=== PATIENT | male | born 1975 | race Caucasian/White ===

== ENCOUNTER 2020-03-16 12:38 | Inpatient (IN) | payer OTHER ==
--- NOTE | 2020-03-16 12:54 | BHS.RME ---
Substance Use & Tx History - Substance Use History Heroin Substance amount: 12 bags Frequency of use: Daily Substance route: Injection (ex: intravenous or skin popping) Date of Last Use: 03/16/20 (6 aqm) Cocaine- Powder Frequency of use: Daily Substance route: Injection (ex: intravenous or skin popping) Date of Last Use: 03/16/20 Synthetic Cannabinoid Substance amount: k2 Frequency of use: Daily Substance route: Smoking Date of Last Use: 03/16/20 Nicotine Substance amount: 1 pack Frequency of use: Daily Substance route: Smoking Physical/Psych/Mental Status - Behavior General Behavior: Increased activity (restlessness, agitation) Eye Contact: Normal - Cooperativeness Cooperativeness: Cooperative - Thinking Thought Processes: Tight, Logical, Goal Directed - Physical Health Problems Is patient presently having any pain?: No Does patient presently have any injuries (include location): No Does patient currently have a fever: No Is patient : No COWS - Scale Resting Pulse: 0= [place] 80 or Below Sweatin= No chills or Flushing Restless Observation: 1= Difficult to Sit Still Pupil Size: 0= Normal to Room Light Bone or Joint Aches: 1= Mild Discomfort Runny Nose/ Eye Tearin= None GI Upset > 30mins: 1= Stomach Cramp Tremor Observation: 1= Tremor [place], Not Seen Yawning Observation: 1= 1-2x During Session Anxiety or Irritability: 1=Feels Anxious/Irritable Goose Flesh Skin: 0=Smooth Skin (due to having used earlier today. not yet in withdrawals) COWS Score: 6
--- NOTE | 2020-03-16 14:21 | HP ---
COWS - Scale Resting Pulse: 0= [place] 80 or Below Sweatin= No chills or Flushing Restless Observation: 1= Difficult to Sit Still Pupil Size: 0= Normal to Room Light Bone or Joint Aches: 1= Mild Discomfort Runny Nose/ Eye Tearin= None GI Upset > 30mins: 1= Stomach Cramp Tremor Observation: 1= Tremor [place], Not Seen Yawning Observation: 1= 1-2x During Session Anxiety or Irritability: 1=Feels Anxious/Irritable Goose Flesh Skin: 0=Smooth Skin (due to having used earlier today. not yet in withdrawals) COWS Score: 6 CIWA Score - Admission Criteria OASAS Guidelines: Admission for Medically Managed Detox: Requires at least one of the followin. CIWA greater than 12 2. Seizures within the past 24 hours 3. Delirium tremens within the past 24 hours 4. Hallucinations within the past 24 hours 5. Acute intervention needed for co occurring medical disorder 6. Acute intervention needed for co occurring psychiatric disorder 7. Severe withdrawal that cannot be handled at a lower level of care (continued vomiting, continued diarrhea, abnormal vital signs) requiring intravenous medication and/or fluids 8. Admitting History and Physical - Admission Chief Complaint: Mr. Luis presents to [facility] [place] requesting admission to detox for heroin use disorder. History of Present Illness: Mr. Luis is a 44 yo gentleman who presents to [facility] [place] requesting a detox admission for heroin, cocaine and K 2 use disorder. He was in the hospital 3 days ago with a skin infection, he states he was treated with IV antibiotics and discharged. PMH: HIV non compliant, HCV tx PSH: kidney stones right and left/lithotripsy Psych: none SOC: homeless, no care home, on streets Legal: on parole: burglary Substance Use History Heroin Substance amount: 12 bags Frequency of use: Daily Substance route: Injection (ex: intravenous or skin popping) Date of Last Use: 03/16/20 (6 aqm) First use age 15y Overdose:no Narcan:yes Methadone: last rx 5-6 years ago, prior to recent incarceration, released from alf in October Cocaine- Powder Frequency of use: Daily Substance route: Injection (ex: intravenous or skin popping) Date of Last Use: 03/16/20 First: age 15 Synthetic Cannabinoid Substance amount: k2 Frequency of use: Daily Substance route: Smoking Date of Last Use: 03/16/20 First use age 43 y Nicotine Substance amount: 1 pack Frequency of use: Daily Substance route: Smoking Alcohol 3 pints Rum 3 x per week, first use age 20y, last use 7pm last night. No seizures. No blackouts. 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 History Source: Patient Limitations to Obtaining History: Language Barrier, Other (interpretor used) - Past Medical History Hepatobiliary: Yes: Hepatitis C Infectious Disease: Yes: HIV - Smoking History Smoking history: Current every day smoker Have you smoked in the past 12 months: Yes Aproximately how many cigarettes per day: 20 - Alcohol/Substance Use Hx Alcohol Use: No Admission ROS BHS - HPI Allergies/Adverse Reactions: Allergies Allergy/AdvReac Type Severity Reaction Status Date / Time aspirin Allergy Intermediate Rash Verified 05/06/16 10:12 ibuprofen [From Motrin] Allergy Intermediate Rash Verified 05/06/16 10:12 Exam Limitations: No Limitations - Ebola screening Have you traveled outside of the country in the last 21 days: No Have you been sick,other than usual withdrawal symptoms: No Do you have a fever: No - Review of Systems Constitutional: Unintentional Wgt. Loss (30 lb weight loss since Oct 2019) EENT: reports: Blurred Vision (glasses, does not have with him) Respiratory: reports: No Symptoms reported Cardiac: reports: No Symptoms Reported GI: reports: Nausea : reports: No Symptoms Reported Musculoskeletal: reports: No Symptoms Reported Integumentary: reports: Other (left arm injection site swelling) Neuro: reports: No Symptoms reported Endocrine: reports: No Symptoms Reported Hematology: reports: No Symptoms Reported Patient History - Patient Medical History Hx Anemia: No Hx Asthma: No Hx Chronic Obstructive Pulmonary Disease (COPD): No Hx Cancer: No Hx Cardiac Disorders: No Hx Congestive Heart Failure: No Hx Hypertension: No Hx Hypercholesterolemia: No Hx Pacemaker: No HX Cerebrovascular Accident: No Hx Seizures: No Hx Dementia: No Hx Diabetes: Yes Hx Gastrointestinal Disorders: No Hx Liver Disease: Yes Hx Genitourinary Disorders: No Hx Sexually Transmitted Disorders: No Hx Renal Disease (ESRD): No Hx Human Immunodeficiency Virus (HIV): Yes (AIDS,CD4+ 56) Hx Hepatitis C: Yes (NEEDS [place].) Hx Depression: No Hx Suicide Attempt: No Hx Bipolar Disorder: No Hx Schizophrenia: No - Patient Surgical History Past Surgical History: No Hx Neurologic Surgery: No Hx Cataract Extraction: No Hx Cardiac Surgery: No Hx Lung Surgery: No Hx Breast Surgery: No Hx Breast Biopsy: No Hx Abdominal Surgery: No Hx Appendectomy: No Hx Cholecystectomy: No Hx Genitourinary Surgery: No Hx Section: No Hx Orthopedic Surgery: No Anesthesia Reaction: No - PPD History Date: 05/08/16 - Smoking Cessation Smoking history: Current every day smoker Have you smoked in the past 12 months: Yes Aproximately how many cigarettes per day: 20 Hx Chewing Tobacco Use: No Initiated information on smoking cessation: Yes 'Breaking Loose' booklet given: 03/16/20 Admission Physical Exam [facility] - Physical General Appearance: Yes: Within Normal Limits, No Apparent Distress, Nourished, Appropriately Dressed HEENTM: Yes: EOMI, Hearing grossly Normal, Normocephalic, Normal Voice Respiratory: Yes: Lungs Clear, Normal Breath Sounds, No Accessory Muscle Use Neck: Yes: Within Normal Limits, Supple, Other (injection sites clean) Breast: Yes: Breast Exam Deferred Cardiology: Yes: Regular Rhythm, Regular Rate, S1, S2 Abdominal: Yes: Normal Bowel Sounds, Non Tender, Flat, Soft Genitourinary: Yes: Other (deferred) Back: Yes: Normal Inspection Musculoskeletal: Yes: full range of Motion, Gait Steady Extremities: Yes: Normal Inspection, Non-Tender Neurological: Yes: Alert, Normal Response Integumentary: Yes: Track Damico (multiple bilateral forearm track damico. Left lateral wrist swelling ~ 3" with open ulceration at center/slit like 0.5", erythematous) - Diagnostic (1) Alcohol use disorder Current Visit: Yes Status: Chronic (2) Synthetic cannabinoid abuse Current Visit: Yes Status: Acute (3) HIV (human immunodeficiency virus infection) Current Visit: No Status: Chronic (4) HCV (hepatitis C virus) Current Visit: No Status: Chronic Comment: treated (5) Bilateral nephrolithiasis Current Visit: Yes Status: Acute (6) Homeless Current Visit: Yes Status: Acute (7) Cellulitis Current Visit: Yes Status: Acute (8) Cocaine dependence, uncomplicated Current Visit: Yes Status: Acute (9) Nicotine dependence Current Visit: No Status: Acute (10) Opioid dependence with withdrawal Current Visit: Yes Status: Acute Cleared for Admission [facility] - Detox or Rehab [facility] Level of Care: Medically Managed Detox Regimen/Protocol: Methadone Breathalyzer - Breathalyzer Breathalyzer: 0 Urine Drug Screen - Test Device Lot number: [id number] Expiration date: 05/18/21 - Control Is test valid?: Yes - Results Drug screen NEGATIVE: No Urine drug screen results: JEANMARIE-Cocaine, FEN-Fentanyl, MOP-Opiates, MTD-Methadone Inpatient Rehab Admission - Rehab Decision to Admit Inpatient rehab admission?: No
[2020-03-16] MEDS ORDERED: METHADONE HCL 10 MG TABLET (FOR DETOX USE ONLY) PO ONE (14:41)
[2020-03-16] MEDS ORDERED: MAGNESIUM CITRATE 300 ML BOTTLE PO PRN (14:41)
[2020-03-16] MEDS ORDERED: METHOCARBAMOL 500 MG TABLET PO PRN (14:41)
[2020-03-16] MEDS ORDERED: cloNIDine HCL 0.1 MG TABLET PO PRN (14:41)
[2020-03-16] MEDS ORDERED: ACETAMINOPHEN 325 MG TABLET (FP) PO PRN ×2 (14:41)
[2020-03-16] MEDS ORDERED: ONDANSETRON *ODT* 4 MG TABLET SL PRN (14:41)
[2020-03-16] MEDS ORDERED: NICOTINE POLACRILEX 2 MG GUM BUC PRN (14:41)
[2020-03-16] MEDS ORDERED: IBUPROFEN 400 MG TABLET (FP) PO PRN (14:41)
[2020-03-16] MEDS ORDERED: MENTHOL/PHENOL 1 EACH UD MM PRN (14:41)
[2020-03-16] MEDS ORDERED: MAGNESIUM HYDROX 2400MG/30ML ORAL SUSPENSION 30 ML CUP PO PRN (14:41)
[2020-03-16] MEDS ORDERED: MAG HYDROX/AL HYDROX/SIMETH 30 ML UNIT-DOSE CUP PO PRN (14:41)
[2020-03-16] MEDS ORDERED: BISMUTH SUBSALICYLATE 524 MG/30 ML UD PO PRN (14:41)
[2020-03-16 14:52] VITALS: BMI 25.4
--- NOTE | 2020-03-16 15:29 | EKG ---
Test Reason : Blood Pressure : / mmHG Vent. Rate : 062 BPM Atrial Rate : 062 BPM P-R Int : 142 ms QRS Dur : 100 ms QT Int : 432 ms P-R-T Axes : 031 036 020 degrees QTc Int : 438 ms NORMAL SINUS RHYTHM MINIMAL VOLTAGE CRITERIA FOR LVH, MAY BE NORMAL VARIANT BORDERLINE ECG NO PREVIOUS ECGS AVAILABLE Confirmed by LINA DOAN MD ([id number]) on 03/16/2020 3:28:43 PM Referred By: Confirmed By:LINA DOAN MD
[2020-03-16] MEDS: NICOTINE 21 MG/24 HOURS TOPICAL PATCH TD SCH (15:31)
[2020-03-16] MEDS: PRENATAL VITAMINS W/ FOLIC ACID TABLET (FP) PO SCH (15:31)
[2020-03-16] MEDS: hydrOXYzine PAMOATE 25 MG CAPSULE (FP) PO SCH ×2 (17:45→22:19)
[2020-03-16] MEDS ORDERED: MELATONIN 5 MG TABLETS PO SCH (22:00)
[2020-03-16] MEDS: THIAMINE HCL 100 MG TABLET (FP) PO SCH (22:19)
[2020-03-17] MEDS: hydrOXYzine PAMOATE 25 MG CAPSULE (FP) PO SCH (05:48)
[2020-03-17] MEDS ORDERED: hydrOXYzine PAMOATE 25 MG CAPSULE (FP) PO PRN (08:25)
[2020-03-17] MEDS ORDERED: METHADONE HCL 5 MG TABLET (FOR DETOX USE ONLY) ONE (08:26)
[2020-03-17] MEDS ORDERED: METHADONE HCL 10 MG TABLET (FOR DETOX USE ONLY) ONE (08:26)
[2020-03-17] MEDS ORDERED: MELATONIN 5 MG TABLETS PO PRN (09:20)
[2020-03-17] MEDS ORDERED: diazePAM 5 MG TABLET PO PRN (09:23)
[2020-03-17] MEDS ORDERED: METHADONE (DETOX) 20 MG, METHADONE (DETOX) 5 MG PO ONE (10:00)
[2020-03-17] MEDS ORDERED: SULFAMETHOXAZOLE/TRIMETHOPRIM 800MG/160MG D.S. TABLET PO SCH (10:00)
[2020-03-17] MEDS: NICOTINE 21 MG/24 HOURS TOPICAL PATCH TD SCH (10:08)
[2020-03-17] MEDS: PRENATAL VITAMINS W/ FOLIC ACID TABLET (FP) PO SCH (10:09)
--- NOTE | 2020-03-17 10:28 | PN ---
BHS COWS - Scale Resting Pulse: 0= [place] 80 or Below Sweatin= Chills/Flushing Restless Observation: 1= Difficult to Sit Still Pupil Size: 0= Normal to Room Light Bone or Joint Aches: 2= Severe Diffuse Aches Runny Nose/ Eye Tearin= None GI Upset > 30mins: 0= None Tremor Observation of Outstretched Hands: 2= Slight Tremor Visible Yawning Observation: 1= 1-2x During Session Anxiety or Irritability: 2=Irritable/Anxious Goose Flesh Skin: 0=Smooth Skin COWS Score: 9 BHS Progress Note (SOAP) Subjective: sweats chills body aches interrupted sleep agitation irritable infection on arm Objective: 03/17/20 10:29 Vital Signs Temperature 98.7 F 03/17/20 08:27 Pulse Rate 64 03/17/20 08:27 Respiratory Rate 18 03/17/20 08:27 Blood Pressure 128/87 03/17/20 08:27 O2 Sat by Pulse Oximetry (%) 99 03/16/20 21:17 labs pending aaoxx3 ambulating no acute distress Assessment: 03/17/20 10:30 withdrawals noted skin wound with some serous sanguineous fluid and some redness to surrounding tissue note. warm to touch. pt does not exhibit any pain but only discomfort. Plan: continue detox increase fluids order to cleanse wound with N/S then apply bacitracin ointment Bactrim ds bid x 7 days ordered.
[2020-03-17] MEDS: THIAMINE HCL 100 MG TABLET (FP) PO SCH (22:28)
[2020-03-17] MEDS: SULFAMETHOXAZOLE/TRIMETHOPRIM 800MG/160MG D.S. TABLET PO SCH (22:28)
[2020-03-18] MEDS ORDERED: METHADONE HCL 10 MG TABLET (FOR DETOX USE ONLY) PO ONE (10:00)
[2020-03-18] MEDS: SULFAMETHOXAZOLE/TRIMETHOPRIM 800MG/160MG D.S. TABLET PO SCH ×2 (10:15→23:00)
[2020-03-18] MEDS: NICOTINE 21 MG/24 HOURS TOPICAL PATCH TD SCH (10:16)
[2020-03-18] MEDS: PRENATAL VITAMINS W/ FOLIC ACID TABLET (FP) PO SCH (10:16)
--- NOTE | 2020-03-18 10:23 | PN ---
BHS COWS - Scale Resting Pulse: 0= [place] 80 or Below Sweatin= Chills/Flushing Restless Observation: 1= Difficult to Sit Still Pupil Size: 0= Normal to Room Light Bone or Joint Aches: 2= Severe Diffuse Aches Runny Nose/ Eye Tearin= Nasal Congestion GI Upset > 30mins: 2= Nausea/Diarrhea Tremor Observation of Outstretched Hands: 1= Tremor [place], Not Seen Yawning Observation: 0= None Anxiety or Irritability: 1=Feels Anxious/Irritable Goose Flesh Skin: 3=Piloerection COWS Score: 12 BHS Progress Note (SOAP) Subjective: chills goosebumps sweats body aches nausea Objective: 03/18/20 10:20 Vital Signs Temperature 97.3 F L 03/18/20 08:47 Pulse Rate 60 03/18/20 08:47 Respiratory Rate 16 03/18/20 08:47 Blood Pressure 128/67 03/18/20 08:47 O2 Sat by Pulse Oximetry (%) 97 03/18/20 05:49 pt is a very hard stick and stone belt sander has been unsuccessful with blood drawn. pt encouraged to drink plenty of water for hydration. labs ordered and stone belt sander will try again this afternoon. Assessment: 03/18/20 10:22 withdrawals Plan: continue detox zofran nick prn pending blood draws
--- NOTE | 2020-03-18 11:02 | CONSULT ---
[facility] Psychiatric Consult - Data Date of interview: 03/18/20 Admission source: [place] Identifying data: Mr Luis is a 44 years old chinese spreaking male seeking detox treatment for opioid cocaine and synthetic cannabis Substance Abuse History: Reports history of heroin, cocaine and k2 use. Refer to addiction counselor's summary for further information Medical History: Significant for HIV+, , history of treatment for hepatitis C and lithotripsy for kidney stones. Smokes cigarettes 1 ppd Psychiatric History: Patient was approached at bedside. Told news writer in chinese:" I don't need psychiatrist"
[2020-03-18] MEDS: THIAMINE HCL 100 MG TABLET (FP) PO SCH (23:00)
[2020-03-19] MEDS ORDERED: METHADONE HCL 5 MG TABLET (FOR DETOX USE ONLY) ONE (08:55)
[2020-03-19] MEDS ORDERED: METHADONE HCL 10 MG TABLET (FOR DETOX USE ONLY) ONE (08:56)
[2020-03-19] MEDS ORDERED: METHADONE (DETOX) 10 MG, METHADONE (DETOX) 5 MG PO ONE (10:00)
[2020-03-19] MEDS: SULFAMETHOXAZOLE/TRIMETHOPRIM 800MG/160MG D.S. TABLET PO SCH ×2 (10:02→21:52)
[2020-03-19] MEDS: NICOTINE 21 MG/24 HOURS TOPICAL PATCH TD SCH (10:02)
[2020-03-19] MEDS: PRENATAL VITAMINS W/ FOLIC ACID TABLET (FP) PO SCH (10:03)
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
[2020-03-19 10:33] LABS: BASO % 0.2 % (0-2.0); EOS % 3.2 % (0-4.5); HEMATOCRIT 40.6 % (35.4-49); LYMPH % 27.7 % (8-40); MCH 28.5 pg (25.7-33.7); MEAN CELL VOLUME 89.2 fl (80-96); MEAN PLT VOLUME 9.7 fl (7.5-11.1); MONO % 9.7 % (3.8-10.2); NEUT % 59.2 % (42.8-82.8); PLATELET COUNT 156 K/MM3 (134-434); RBC 4.55 M/mm3 (4.00-5.60); RDW 14.8 % (11.9-15.9); WHITE BLOOD COUNT 5.1 K/mm3 (4.0-10.0)
[2020-03-19 10:43] LABS: ALBUMIN 3.3 g/dl (3.4-5.0); BILIRUBIN,TOTAL 1.1 mg/dL (0.2-1); BLOOD UREA NITROGEN 5.3 mg/dL (7-18); CALCIUM 9.1 mg/dL (8.5-10.1); CREATININE 0.8 mg/dL (0.55-1.3); POTASSIUM 3.5 mmol/L (3.5-5.1)
--- NOTE | 2020-03-19 10:47 | PN ---
BHS COWS - Scale Resting Pulse: 0= [place] 80 or Below Sweatin= Chills/Flushing Restless Observation: 1= Difficult to Sit Still Pupil Size: 0= Normal to Room Light Bone or Joint Aches: 1= Mild Discomfort Runny Nose/ Eye Tearin= None GI Upset > 30mins: 1= Stomach Cramp Tremor Observation of Outstretched Hands: 1= Tremor [place], Not Seen Yawning Observation: 0= None Anxiety or Irritability: 1=Feels Anxious/Irritable Goose Flesh Skin: 0=Smooth Skin COWS Score: 6 BHS Progress Note (SOAP) Subjective: chills poor appetite sweats Objective: 03/19/20 10:49 Vital Signs Temperature 97.1 F L 03/19/20 08:33 Pulse Rate 67 03/19/20 08:33 Respiratory Rate 17 03/19/20 08:33 Blood Pressure 113/64 03/19/20 08:33 O2 Sat by Pulse Oximetry (%) 96 03/19/20 05:55 Laboratory Tests 03/16/20 03/19/20 11:30 08:30 Sodium 140 Potassium 3.5 Chloride 102 Carbon Dioxide 31 Anion Gap 6 L BUN 5.3 L Creatinine 0.8 Est GFR (CKD-EPI)AfAm 125.92 Est GFR (CKD-EPI)NonAf 108.65 Random Glucose 92 Calcium 9.1 Total Bilirubin 1.1 H AST 48 H ALT 30 Alkaline Phosphatase 104 Total Protein 8.0 Albumin 3.3 L COVID-19 (CHENG) Not detected current labs noted rest of labs pending aaox3 ambulating no acute distress Assessment: 03/19/20 10:50 withdrawals Plan: continue detox ensure plus BID for lunch and dinner increase fluids pending labs
[2020-03-19] MEDS ORDERED: MELATONIN 5 MG TABLETS PO PRN (10:49)
--- NOTE | 2020-03-19 12:56 | PN ---
S Progress Note Note: pt has a long history of depression, HIV, alcohol and heroin dependence where he is at risk for relapse if he is to be d/c on Monday instead of Monday. pt will benefit of this stay to prevent a loss of continuity of care and treatment for his dependence.
[2020-03-19] MEDS: THIAMINE HCL 100 MG TABLET (FP) PO SCH (21:51)
[2020-03-20] MEDS ORDERED: METHADONE HCL 10 MG TABLET (FOR DETOX USE ONLY) PO ONE (10:00)
[2020-03-20] MEDS: NICOTINE 21 MG/24 HOURS TOPICAL PATCH TD SCH (10:04)
[2020-03-20] MEDS: SULFAMETHOXAZOLE/TRIMETHOPRIM 800MG/160MG D.S. TABLET PO SCH ×2 (10:04→21:44)
[2020-03-20] MEDS: PRENATAL VITAMINS W/ FOLIC ACID TABLET (FP) PO SCH (10:04)
--- NOTE | 2020-03-20 12:11 | PN ---
BHS COWS - Scale Resting Pulse: 0= [place] 80 or Below Sweatin= No chills or Flushing Restless Observation: 0= Sits Still Pupil Size: 1= Pupils >than Normal Bone or Joint Aches: 1= Mild Discomfort Runny Nose/ Eye Tearin= Nasal Congestion GI Upset > 30mins: 1= Stomach Cramp Tremor Observation of Outstretched Hands: 2= Slight Tremor Visible Yawning Observation: 1= 1-2x During Session Anxiety or Irritability: 2=Irritable/Anxious Goose Flesh Skin: 0=Smooth Skin COWS Score: 9 BHS Progress Note (SOAP) Subjective: alert,irritable,anxious,interrupted sleep,pain in the body and back, Objective: 03/20/20 12:09 Vital Signs Temperature 97.3 F L 03/20/20 08:28 Pulse Rate 62 03/20/20 08:28 Respiratory Rate 16 03/20/20 08:28 Blood Pressure 109/61 03/20/20 08:28 O2 Sat by Pulse Oximetry (%) 96 03/20/20 06:19 03/20/20 12:10 Laboratory Last Values WBC 5.1 K/mm3 (4.0-10.0) 03/19/20 08:30 RBC 4.55 M/mm3 (4.00-5.60) 03/19/20 08:30 Hgb 13.0 GM/dL (11.7-16.9) 03/19/20 08:30 Hct 40.6 % (35.4-49) 03/19/20 08:30 MCV 89.2 fl (80-96) 03/19/20 08:30 MCH 28.5 pg (25.7-33.7) 03/19/20 08:30 MCHC 32.0 g/dl (32.0-35.9) 03/19/20 08:30 RDW 14.8 % (11.9-15.9) 03/19/20 08:30 Plt Count 156 K/MM3 (134-434) D 03/19/20 08:30 MPV 9.7 fl (7.5-11.1) D 03/19/20 08:30 Absolute Neuts (auto) 3.0 K/mm3 (1.5-8.0) 03/19/20 08:30 Neutrophils % 59.2 % (42.8-82.8) 03/19/20 08:30 Lymphocytes % 27.7 % (8-40) 03/19/20 08:30 Monocytes % 9.7 % (3.8-10.2) 03/19/20 08:30 Eosinophils % 3.2 % (0-4.5) 03/19/20 08:30 Basophils % 0.2 % (0-2.0) 03/19/20 08:30 Nucleated RBC % 0 % (0-0) 03/19/20 08:30 Sodium 140 mmol/L (136-145) 03/19/20 08:30 Potassium 3.5 mmol/L (3.5-5.1) 03/19/20 08:30 Chloride 102 mmol/L (98-107) 03/19/20 08:30 Carbon Dioxide 31 mmol/L (21-32) 03/19/20 08:30 Anion Gap 6 MMOL/L (8-16) L 03/19/20 08:30 BUN 5.3 mg/dL (7-18) L 03/19/20 08:30 Creatinine 0.8 mg/dL (0.55-1.3) 03/19/20 08:30 Est GFR (CKD-EPI)AfAm 125.92 03/19/20 08:30 Est GFR (CKD-EPI)NonAf 108.65 03/19/20 08:30 Random Glucose 92 mg/dL (74-106) 03/19/20 08:30 Calcium 9.1 mg/dL (8.5-10.1) 03/19/20 08:30 Total Bilirubin 1.1 mg/dL (0.2-1) H 03/19/20 08:30 AST 48 U/L (15-37) H 03/19/20 08:30 ALT 30 U/L (13-61) 03/19/20 08:30 Alkaline Phosphatase 104 U/L (45-117) 03/19/20 08:30 Total Protein 8.0 g/dl (6.4-8.2) 03/19/20 08:30 Albumin 3.3 g/dl (3.4-5.0) L 03/19/20 08:30 Syphilis Serology Non-reactive (NONREACTIVE) 03/19/20 08:30 COVID-19 (CHENG) Not detected (Not Detected) 03/16/20 11:30 Assessment: withdrawal symptom Plan: continue detox methadone regimen
[2020-03-20] MEDS: THIAMINE HCL 100 MG TABLET (FP) PO SCH (21:44)
[2020-03-21] MEDS ORDERED: METHADONE HCL 5 MG TABLET (FOR DETOX USE ONLY) PO ONE (06:00)
[2020-03-21] MEDS: SULFAMETHOXAZOLE/TRIMETHOPRIM 800MG/160MG D.S. TABLET PO SCH (10:11)
[2020-03-21] MEDS: PRENATAL VITAMINS W/ FOLIC ACID TABLET (FP) PO SCH (10:11)
[2020-03-21] MEDS: NICOTINE 21 MG/24 HOURS TOPICAL PATCH TD SCH (10:12)
[2020-03-21 13:26] VITALS: PULSE 67; TEMP 97.3
--- NOTE | 2020-03-21 14:41 | PN ---
BHS COWS - Scale Resting Pulse: 0= [place] 80 or Below Sweatin= No chills or Flushing Restless Observation: 1= Difficult to Sit Still Pupil Size: 0= Normal to Room Light Bone or Joint Aches: 1= Mild Discomfort Runny Nose/ Eye Tearin= None GI Upset > 30mins: 0= None Tremor Observation of Outstretched Hands: 0= None Yawning Observation: 1= 1-2x During Session Anxiety or Irritability: 1=Feels Anxious/Irritable Goose Flesh Skin: 0=Smooth Skin COWS Score: 4 BHS Progress Note (SOAP) Subjective: Anxious (mild), restless. Objective: Patient A & O X 3, Observed Ambulating on Detox Unit Unassisted. In No Acute Distress. 03/21/20 14:45 Vital Signs Temperature 97.3 F L 03/21/20 12:19 Pulse Rate 67 03/21/20 12:19 Respiratory Rate 16 03/21/20 12:19 Blood Pressure 127/67 03/21/20 12:19 O2 Sat by Pulse Oximetry (%) 100 03/21/20 12:19 Laboratory Tests 03/16/20 03/19/20 03/19/20 11:30 08:30 08:30 WBC 5.1 RBC 4.55 Hgb 13.0 Hct 40.6 MCV 89.2 MCH 28.5 MCHC 32.0 RDW 14.8 Plt Count 156 D MPV 9.7 D Absolute Neuts (auto) 3.0 Neutrophils % 59.2 Lymphocytes % 27.7 Monocytes % 9.7 Eosinophils % 3.2 Basophils % 0.2 Nucleated RBC % 0 Sodium 140 Potassium 3.5 Chloride 102 Carbon Dioxide 31 Anion Gap 6 L BUN 5.3 L Creatinine 0.8 Est GFR (CKD-EPI)AfAm 125.92 Est GFR (CKD-EPI)NonAf 108.65 Random Glucose 92 Calcium 9.1 Total Bilirubin 1.1 H AST 48 H ALT 30 Alkaline Phosphatase 104 Total Protein 8.0 Albumin 3.3 L Syphilis Serology COVID-19 (CHENG) Not detected 03/19/20 08:30 WBC RBC Hgb Hct MCV MCH MCHC RDW Plt Count MPV Absolute Neuts (auto) Neutrophils % Lymphocytes % Monocytes % Eosinophils % Basophils % Nucleated RBC % Sodium Potassium Chloride Carbon Dioxide Anion Gap BUN Creatinine Est GFR (CKD-EPI)AfAm Est GFR (CKD-EPI)NonAf Random Glucose Calcium Total Bilirubin AST ALT Alkaline Phosphatase Total Protein Albumin Syphilis Serology Non-reactive COVID-19 (CHENG) Lab Results noted. Assessment: 03/21/20 14:46 WITHDRAWAL SYMPTOMS. Plan: Due to presence of pre-existing medical and psychiatric conditions and due concern about high risk of relapse, Patient to be held on Detox Unit until tomorrow, 03/22/2020, to help ensure transition to aftercare treatment program. Patient will evaluated again tomorrow AM to determine subsequent treatment plan at that time.
[2020-03-21 17:24] VITALS: BP 119/69
--- NOTE | 2020-03-21 17:49 | PN ---
[facility] CIWA - CIWA Score Nausea/Vomitin-No Nausea/No Vomiting Muscle Tremors: None Anxiety: 1-Mildly Anxious Agitation: 0-Normal Activity Paroxysmal Sweats: No Perspiration Orientation: 0-Oriented Tacttile Disturbances: 0-None Auditory Disturbances: 0-None Visual Disturbances: 0-None Headache: 0-None Present CIWA-Ar Total Score: 1 BHS Progress Note (SOAP) Subjective: alert,no complaint Objective: 03/21/20 17:47 Vital Signs Temperature 97.3 F L 03/21/20 17:23 Pulse Rate 67 03/21/20 17:23 Respiratory Rate 18 03/21/20 17:23 Blood Pressure 119/69 03/21/20 17:23 O2 Sat by Pulse Oximetry (%) 100 03/21/20 12:19 Assessment: 03/21/20 17:48 no withdrawal symptom Plan: patient would like to be discharged,stated he is doing well,stable for discharge,follow up with after care program as arrangement
--- NOTE | 2020-03-21 17:50 | DS ---
[facility] Detox Discharge Summary Admission Date: 03/16/20 Discharge Date: 03/21/20 - History Present History: Alcohol Dependence, Cannabis Dependence, Cocaine Dependence, Opioid Dependence Additional Comments: alert,oriented x 3 ambulation on the unit lung clear on auscultation bilaterally no abdominal pain,no tenderness stable for discharge no suicidal no homicidal patient does not want to go to rehab as arrangement and changed his mind to go to rehab left the unit in stable condition total time of discharge 35 minutes seen by the counselor Pertinent Past History: hepatitis c hiv insomnia - Physical Exam Results Vital Signs: Vital Signs Temperature 97.3 F L 03/21/20 17:23 Pulse Rate 67 03/21/20 17:23 Respiratory Rate 18 03/21/20 17:23 Blood Pressure 119/69 03/21/20 17:23 O2 Sat by Pulse Oximetry (%) 100 03/21/20 12:19 Pertinent Admission Physical Exam Findings: withdrawal signs and symptom Vital Signs Temperature 97.3 F L 03/21/20 17:23 Pulse Rate 67 03/21/20 17:23 Respiratory Rate 18 03/21/20 17:23 Blood Pressure 119/69 03/21/20 17:23 O2 Sat by Pulse Oximetry (%) 100 03/21/20 12:19 Laboratory Last Values WBC 5.1 K/mm3 (4.0-10.0) 03/19/20 08:30 RBC 4.55 M/mm3 (4.00-5.60) 03/19/20 08:30 Hgb 13.0 GM/dL (11.7-16.9) 03/19/20 08:30 Hct 40.6 % (35.4-49) 03/19/20 08:30 MCV 89.2 fl (80-96) 03/19/20 08:30 MCH 28.5 pg (25.7-33.7) 03/19/20 08:30 MCHC 32.0 g/dl (32.0-35.9) 03/19/20 08:30 RDW 14.8 % (11.9-15.9) 03/19/20 08:30 Plt Count 156 K/MM3 (134-434) D 03/19/20 08:30 MPV 9.7 fl (7.5-11.1) D 03/19/20 08:30 Absolute Neuts (auto) 3.0 K/mm3 (1.5-8.0) 03/19/20 08:30 Neutrophils % 59.2 % (42.8-82.8) 03/19/20 08:30 Lymphocytes % 27.7 % (8-40) 03/19/20 08:30 Monocytes % 9.7 % (3.8-10.2) 03/19/20 08:30 Eosinophils % 3.2 % (0-4.5) 03/19/20 08:30 Basophils % 0.2 % (0-2.0) 03/19/20 08:30 Nucleated RBC % 0 % (0-0) 03/19/20 08:30 Sodium 140 mmol/L (136-145) 03/19/20 08:30 Potassium 3.5 mmol/L (3.5-5.1) 03/19/20 08:30 Chloride 102 mmol/L (98-107) 03/19/20 08:30 Carbon Dioxide 31 mmol/L (21-32) 03/19/20 08:30 Anion Gap 6 MMOL/L (8-16) L 03/19/20 08:30 BUN 5.3 mg/dL (7-18) L 03/19/20 08:30 Creatinine 0.8 mg/dL (0.55-1.3) 03/19/20 08:30 Est GFR (CKD-EPI)AfAm 125.92 03/19/20 08:30 Est GFR (CKD-EPI)NonAf 108.65 03/19/20 08:30 Random Glucose 92 mg/dL (74-106) 03/19/20 08:30 Calcium 9.1 mg/dL (8.5-10.1) 03/19/20 08:30 Total Bilirubin 1.1 mg/dL (0.2-1) H 03/19/20 08:30 AST 48 U/L (15-37) H 03/19/20 08:30 ALT 30 U/L (13-61) 03/19/20 08:30 Alkaline Phosphatase 104 U/L (45-117) 03/19/20 08:30 Total Protein 8.0 g/dl (6.4-8.2) 03/19/20 08:30 Albumin 3.3 g/dl (3.4-5.0) L 03/19/20 08:30 Syphilis Serology Non-reactive (NONREACTIVE) 03/19/20 08:30 COVID-19 (CHENG) Not detected (Not Detected) 03/16/20 11:30 - Treatment Hospital Course: Detox Protocol Followed, Detoxed Safely, Responded well, Discharged Condition Good, Rehab Referral Accepted ([facility]) Patient has Accepted a Rehab Referral to: [facility] - Medication Discharge Medications: Ambulatory Orders NK [No Known Home Medication] 05/06/16 - Diagnosis (1) Opioid dependence with withdrawal Current Visit: Yes Status: Acute (2) Cocaine dependence, uncomplicated Current Visit: Yes Status: Acute (3) Alcohol use disorder Current Visit: Yes Status: Chronic (4) HIV (human immunodeficiency virus infection) Current Visit: No Status: Chronic (5) Nicotine dependence Current Visit: No Status: Chronic (6) HCV (hepatitis C virus) Current Visit: No Status: Resolved (7) Substance induced mood disorder Current Visit: Yes Status: Acute (8) Substance-induced sleep disorder Current Visit: Yes Status: Acute - AMA Did Patient Leave Against Medical Advice: No
--- NOTE | 2020-03-21 17:56 | PN ---
[facility] COWS - Scale Resting Pulse: 0= GA 80 or Below Sweatin= No chills or Flushing Restless Observation: 0= Sits Still Pupil Size: 0= Normal to Room Light Bone or Joint Aches: 0= None Runny Nose/ Eye Tearin= None GI Upset > 30mins: 0= None Tremor Observation of Outstretched Hands: 0= None Yawning Observation: 0= None Anxiety or Irritability: 1=Feels Anxious/Irritable Goose Flesh Skin: 0=Smooth Skin COWS Score: 1 [facility] Progress Note (SOAP) Subjective: alert,no complaint Objective: 03/21/20 17:54 Vital Signs Temperature 97.3 F L 03/21/20 17:23 Pulse Rate 67 03/21/20 17:23 Respiratory Rate 18 03/21/20 17:23 Blood Pressure 119/69 03/21/20 17:23 O2 Sat by Pulse Oximetry (%) 100 03/21/20 12:19 Assessment: 03/21/20 17:54 no withdrawal symptom Plan: patient feel much better,no withdrawal symptom,would like to be discharged,follow up with after care program as arrangement
== END 2020-03-21 18:00 | disposition home or self-care (01) | DRG 773 ==
LOC: YASAS 12:38 → Y6N 14:32
PROVIDERS: ADMIT Allergy & Immunology; ATTEND Allergy & Immunology
PROC: HZ2ZZZZ Detoxification Services for Substance Abuse Treatment (ICD-10-PCS; principal; 2020-03-16)
DX: F11.23 Opioid dependence with withdrawal (principal); F10.230 Alcohol dependence with withdrawal, uncomplicated; F14.20 Cocaine dependence, uncomplicated; F19.10 Other psychoactive substance abuse, uncomplicated; F17.210 Nicotine dependence, cigarettes, uncomplicated; F19.24 Other psychoactive substance dependence with psychoactive substance-induced mood disorder; F19.282 Other psychoactive substance dependence with psychoactive substance-induced sleep disorder; F32.9 Major depressive disorder, single episode, unspecified; B20 Human immunodeficiency virus [HIV] disease; G47.00 Insomnia, unspecified; B18.2 Chronic viral hepatitis C; E10.9 Type 1 diabetes mellitus without complications; Z62.810 Personal history of physical and sexual abuse in childhood; R63.4 Abnormal weight loss; Z68.25 Body mass index [BMI] 25.0-25.9, adult; Z87.442 Personal history of urinary calculi; Z88.6 Allergy status to analgesic agent; Z56.0 Unemployment, unspecified; Z59.0 Homelessness
CPT/HCPCS: 36415; 80053; 85025; 86780; 93005; 93010; Q0162; U0003

== ENCOUNTER 2020-08-21 13:10 | Inpatient (IN) | payer OTHER ==
[2020-08-21 15:02] VITALS: BMI 23.6
[2020-08-21] MEDS ORDERED: MAG HYDROX/AL HYDROX/SIMETH 30 ML UNIT-DOSE CUP PO PRN (15:24)
[2020-08-21] MEDS ORDERED: ACETAMINOPHEN 325 MG TABLET (FP) PO PRN ×2 (15:24)
[2020-08-21] MEDS ORDERED: chlordiazePOXIDE HCL 25 MG CAPSULE PO PRN (15:24)
[2020-08-21] MEDS ORDERED: MAGNESIUM HYDROX 2400MG/30ML ORAL SUSPENSION 30 ML CUP PO PRN (15:24)
[2020-08-21] MEDS ORDERED: ONDANSETRON *ODT* 4 MG TABLET SL PRN (15:24)
[2020-08-21] MEDS ORDERED: MENTHOL/PHENOL 1 EACH UD MM PRN (15:24)
[2020-08-21] MEDS ORDERED: NICOTINE POLACRILEX 2 MG GUM BUC PRN (15:24)
[2020-08-21] MEDS ORDERED: MAGNESIUM CITRATE 300 ML BOTTLE PO PRN (15:24)
[2020-08-21] MEDS: chlordiazePOXIDE HCL 25 MG CAPSULE PO SCH ×2 (16:35→22:17)
[2020-08-21] MEDS: NICOTINE 14 MG/24 HOURS TOPICAL PATCH TD SCH (16:56)
[2020-08-21] MEDS: hydrOXYzine PAMOATE 25 MG CAPSULE (FP) PO SCH ×2 (17:00→22:17)
[2020-08-21] MEDS: BICTEGRAV/EMTRICIT/TENOFOV (BIKTARVY) 50-200-25 MG TABLET PO SCH (18:00)
[2020-08-21] MEDS: THIAMINE HCL 100 MG TABLET (FP) PO SCH (22:17)
[2020-08-21] MEDS: MELATONIN 5 MG TABLETS PO SCH (22:17)
[2020-08-22] MEDS ORDERED: METHADONE HCL 10 MG TABLET ONE (04:21)
[2020-08-22] MEDS ORDERED: METHADONE HCL 40 MG DISPERSABLE TABLET ONE (04:21)
[2020-08-22] MEDS ORDERED: METHADONE HCL 10 MG TABLET PO SCH (06:00)
[2020-08-22] MEDS: chlordiazePOXIDE HCL 25 MG CAPSULE PO SCH ×4 (07:23→22:40)
[2020-08-22] MEDS: METHADONE 40 MG, METHADONE 30 MG PO SCH (07:23)
[2020-08-22] MEDS: hydrOXYzine PAMOATE 25 MG CAPSULE (FP) PO SCH ×5 (07:25→22:40)
[2020-08-22 09:33] LABS: HEMATOCRIT 36.1 % (35.4-49); MCH 29.3 pg (25.7-33.7); MCHC 33.2 g/dl (32.0-35.9); MEAN CELL VOLUME 88.2 fl (80-96); MEAN PLT VOLUME 10.5 fl (7.5-11.1); PLATELET COUNT 60 K/MM3 (134-434); RBC 4.09 M/mm3 (4.00-5.60)
[2020-08-22 09:38] LABS: POTASSIUM 3.6 mmol/L (3.5-5.1)
[2020-08-22] MEDS ORDERED: PATIENT'S OWN MEDICATION (NON-FORMULARY) (Sertraline Hcl [Zoloft] 100 MG Tablet) PO SCH (10:00)
[2020-08-22 10:03] LABS: BLOOD UREA NITROGEN 8.2 mg/dL (7-18)
[2020-08-22 10:04] LABS: ALBUMIN 3.3 g/dl (3.4-5.0); CALCIUM 8.5 mg/dL (8.5-10.1); CREATININE 0.8 mg/dL (0.55-1.3)
[2020-08-22 10:05] LABS: BILIRUBIN,TOTAL 0.3 mg/dL (0.2-1); TOT PROT 6.8 g/dl (6.4-8.2)
[2020-08-22 10:20] LABS: WHITE BLOOD COUNT 1.8 K/mm3 (4.0-10.0)
[2020-08-22] MEDS: SERTRALINE HCL 50 MG TABLET (FP) PO SCH (10:24)
[2020-08-22] MEDS: NICOTINE 14 MG/24 HOURS TOPICAL PATCH TD SCH (10:24)
[2020-08-22] MEDS: PRENATAL VITAMINS W/ FOLIC ACID TABLET (FP) PO SCH (10:24)
[2020-08-22] MEDS ORDERED: MASKS NR ONE (12:23)
[2020-08-22] MEDS: BICTEGRAV/EMTRICIT/TENOFOV (BIKTARVY) 50-200-25 MG TABLET PO SCH (14:00)
[2020-08-22] MEDS: THIAMINE HCL 100 MG TABLET (FP) PO SCH (22:40)
[2020-08-22] MEDS: MELATONIN 5 MG TABLETS PO SCH (22:41)
[2020-08-23] MEDS ORDERED: METHADONE HCL 10 MG TABLET ONE (04:07)
[2020-08-23] MEDS ORDERED: METHADONE HCL 40 MG DISPERSABLE TABLET ONE (04:08)
[2020-08-23] MEDS: chlordiazePOXIDE HCL 25 MG CAPSULE PO SCH ×4 (05:41→22:40)
[2020-08-23] MEDS: METHADONE 40 MG, METHADONE 30 MG PO SCH (05:42)
[2020-08-23] MEDS: hydrOXYzine PAMOATE 25 MG CAPSULE (FP) PO SCH ×5 (05:42→22:40)
[2020-08-23] MEDS: BICTEGRAV/EMTRICIT/TENOFOV (BIKTARVY) 50-200-25 MG TABLET PO SCH (10:19)
[2020-08-23] MEDS: NICOTINE 14 MG/24 HOURS TOPICAL PATCH TD SCH (10:19)
[2020-08-23] MEDS: PRENATAL VITAMINS W/ FOLIC ACID TABLET (FP) PO SCH (10:20)
[2020-08-23] MEDS: SERTRALINE HCL 50 MG TABLET (FP) PO SCH (10:20)
[2020-08-23 11:12] LABS: BASO % 0.6 % (0-2.0); EOS % 8.9 % (0-4.5); HEMATOCRIT 39.3 % (35.4-49); LYMPH % 36.2 % (8-40); MCH 29.3 pg (25.7-33.7); MCHC 33.2 g/dl (32.0-35.9); MEAN CELL VOLUME 88.2 fl (80-96); MEAN PLT VOLUME 10.1 fl (7.5-11.1); MONO % 8.8 % (3.8-10.2); NEUT % 45.5 % (42.8-82.8); PLATELET COUNT 75 K/MM3 (134-434); RBC 4.46 M/mm3 (4.00-5.60); RDW 18.3 % (11.9-15.9); WHITE BLOOD COUNT 2.7 K/mm3 (4.0-10.0)
[2020-08-23] MEDS: THIAMINE HCL 100 MG TABLET (FP) PO SCH (22:40)
[2020-08-23] MEDS: MELATONIN 5 MG TABLETS PO SCH (22:41)
[2020-08-24] MEDS ORDERED: chlordiazePOXIDE HCL 10 MG CAPSULE PO PRN
[2020-08-24] MEDS ORDERED: METHADONE HCL 10 MG TABLET ONE (03:15)
[2020-08-24] MEDS ORDERED: METHADONE HCL 40 MG DISPERSABLE TABLET ONE (03:16)
[2020-08-24] MEDS: METHADONE 40 MG, METHADONE 30 MG PO SCH (06:11)
[2020-08-24] MEDS: hydrOXYzine PAMOATE 25 MG CAPSULE (FP) PO SCH ×5 (06:11→23:14)
[2020-08-24] MEDS: chlordiazePOXIDE HCL 10 MG CAPSULE PO SCH ×4 (06:11→23:14)
[2020-08-24] MEDS: BICTEGRAV/EMTRICIT/TENOFOV (BIKTARVY) 50-200-25 MG TABLET PO SCH (10:00)
[2020-08-24] MEDS: PRENATAL VITAMINS W/ FOLIC ACID TABLET (FP) PO SCH (10:01)
[2020-08-24] MEDS: NICOTINE 14 MG/24 HOURS TOPICAL PATCH TD SCH (10:01)
[2020-08-24] MEDS: SERTRALINE HCL 50 MG TABLET (FP) PO SCH (10:01)
[2020-08-24] MEDS: THIAMINE HCL 100 MG TABLET (FP) PO SCH (23:14)
[2020-08-24] MEDS: MELATONIN 5 MG TABLETS PO SCH (23:14)
[2020-08-25] MEDS ORDERED: METHADONE HCL 40 MG DISPERSABLE TABLET ONE (03:08)
[2020-08-25] MEDS ORDERED: METHADONE HCL 10 MG TABLET ONE (03:08)
[2020-08-25] MEDS: chlordiazePOXIDE HCL 10 MG CAPSULE PO SCH ×2 (06:27→17:22)
[2020-08-25] MEDS: hydrOXYzine PAMOATE 25 MG CAPSULE (FP) PO SCH (06:27)
[2020-08-25] MEDS: METHADONE 40 MG, METHADONE 30 MG PO SCH (06:27)
[2020-08-25] MEDS ORDERED: hydrOXYzine PAMOATE 25 MG CAPSULE (FP) PO PRN (08:37)
[2020-08-25] MEDS: NICOTINE 14 MG/24 HOURS TOPICAL PATCH TD SCH (10:26)
[2020-08-25] MEDS: PRENATAL VITAMINS W/ FOLIC ACID TABLET (FP) PO SCH (10:26)
[2020-08-25] MEDS: BICTEGRAV/EMTRICIT/TENOFOV (BIKTARVY) 50-200-25 MG TABLET PO SCH (10:26)
[2020-08-25] MEDS: SERTRALINE HCL 50 MG TABLET (FP) PO SCH (10:26)
[2020-08-25] MEDS: METHOCARBAMOL 500 MG TABLET PO PRN ×2 (10:50→21:25)
[2020-08-25] MEDS ORDERED: METHYL SALICYLATE/MENTHOL OINT 30 GM TUBE TP SCH (11:15)
[2020-08-25] MEDS: MELATONIN 5 MG TABLETS PO SCH (21:26)
[2020-08-25] MEDS: THIAMINE HCL 100 MG TABLET (FP) PO SCH (21:26)
[2020-08-26] MEDS ORDERED: METHADONE HCL 40 MG DISPERSABLE TABLET ONE (03:15)
[2020-08-26] MEDS ORDERED: METHADONE HCL 10 MG TABLET ONE (03:15)
[2020-08-26] MEDS ORDERED: chlordiazePOXIDE HCL 10 MG CAPSULE PO ONE (05:00)
[2020-08-26] MEDS: METHADONE 40 MG, METHADONE 30 MG PO SCH (05:57)
[2020-08-26] MEDS: PRENATAL VITAMINS W/ FOLIC ACID TABLET (FP) PO SCH (09:56)
[2020-08-26] MEDS: SERTRALINE HCL 50 MG TABLET (FP) PO SCH (09:57)
[2020-08-26] MEDS: NICOTINE 14 MG/24 HOURS TOPICAL PATCH TD SCH (09:57)
[2020-08-26] MEDS: BICTEGRAV/EMTRICIT/TENOFOV (BIKTARVY) 50-200-25 MG TABLET PO SCH (10:29)
[2020-08-26] MEDS: METHOCARBAMOL 500 MG TABLET PO PRN (13:22)
[2020-08-26 18:58] VITALS: BP 126/82; PULSE 61; TEMP 97.3
== END 2020-08-26 19:05 | disposition other institution (70) | DRG 773 ==
LOC: YASAS 13:10 → Y6N 15:43
PROVIDERS: ADMIT Allergy & Immunology; ATTEND Allergy & Immunology
PROC: HZ2ZZZZ Detoxification Services for Substance Abuse Treatment (ICD-10-PCS; principal; 2020-08-21)
DX: F11.23 Opioid dependence with withdrawal (principal); F13.230 Sedative, hypnotic or anxiolytic dependence with withdrawal, uncomplicated; F10.230 Alcohol dependence with withdrawal, uncomplicated; F14.20 Cocaine dependence, uncomplicated; F17.210 Nicotine dependence, cigarettes, uncomplicated; F19.24 Other psychoactive substance dependence with psychoactive substance-induced mood disorder; B20 Human immunodeficiency virus [HIV] disease; D72.819 Decreased white blood cell count, unspecified; D69.6 Thrombocytopenia, unspecified; R74.01 Elevation of levels of liver transaminase levels; M79.645 Pain in left finger(s); Z88.6 Allergy status to analgesic agent; Z86.19 Personal history of other infectious and parasitic diseases; Z59.0 Homelessness
CPT/HCPCS: 36415; 73140-TC-LT-FY; 80053; 85025; 85027; 86780; C9803; U0003

== ENCOUNTER 2020-08-26 19:49 | Inpatient (IN) | payer OTHER ==
[2020-08-26] MEDS ORDERED: MAGNESIUM HYDROX 2400MG/30ML ORAL SUSPENSION 30 ML CUP PO PRN (20:20)
[2020-08-26] MEDS ORDERED: NICOTINE POLACRILEX 2 MG GUM BUC PRN (20:20)
[2020-08-26] MEDS ORDERED: MAGNESIUM CITRATE 300 ML BOTTLE PO PRN (20:20)
[2020-08-26] MEDS ORDERED: MAG HYDROX/AL HYDROX/SIMETH 30 ML UNIT-DOSE CUP PO PRN (20:20)
[2020-08-26] MEDS ORDERED: guaiFENesin 200 MG/10 ML 10 ML UNIT-DOSE CUPS PO PRN (20:20)
[2020-08-26] MEDS ORDERED: P-EPHED 60MG/TRIPROLIDI 2.5MG TABLET PO PRN (20:20)
[2020-08-26] MEDS ORDERED: ACETAMINOPHEN 325 MG TABLET (FP) PO PRN (20:20)
[2020-08-26] MEDS ORDERED: LOPERAMIDE HCL 2 MG CAPSULE PO PRN (20:20)
[2020-08-26] MEDS ORDERED: IBUPROFEN 400 MG TABLET (FP) PO PRN (20:20)
[2020-08-26] MEDS ORDERED: MENTHOL/PHENOL 1 EACH UD MM PRN (20:20)
[2020-08-26] MEDS: THIAMINE HCL 100 MG TABLET (FP) PO SCH (22:30)
[2020-08-26] MEDS: hydrOXYzine PAMOATE 25 MG CAPSULE (FP) PO SCH (22:30)
[2020-08-26] MEDS: MELATONIN 5 MG TABLETS PO SCH (22:30)
[2020-08-26] MEDS: SULFAMETHOXAZOLE/TRIMETHOPRIM 800MG/160MG D.S. TABLET PO SCH (22:30)
[2020-08-27] MEDS ORDERED: METHADONE HCL 10 MG TABLET ONE (05:15)
[2020-08-27] MEDS ORDERED: METHADONE HCL 40 MG DISPERSABLE TABLET ONE (05:15)
[2020-08-27] MEDS ORDERED: METHADONE HCL 10 MG TABLET PO SCH (06:00)
[2020-08-27] MEDS: METHADONE 40 MG, METHADONE 30 MG PO SCH (06:03)
[2020-08-27] MEDS: hydrOXYzine PAMOATE 25 MG CAPSULE (FP) PO SCH ×5 (06:04→21:08)
[2020-08-27] MEDS: PRENATAL VITAMINS W/ FOLIC ACID TABLET (FP) PO SCH (10:18)
[2020-08-27] MEDS: SULFAMETHOXAZOLE/TRIMETHOPRIM 800MG/160MG D.S. TABLET PO SCH ×2 (10:18→21:07)
[2020-08-27] MEDS: NICOTINE 7 MG/24 HOURS TOPICAL PATCH TD SCH (10:18)
[2020-08-27] MEDS: METHOCARBAMOL 500 MG TABLET PO SCH ×3 (14:16→21:07)
[2020-08-27] MEDS ORDERED: MASKS NR ONE (21:07)
[2020-08-27] MEDS: MELATONIN 5 MG TABLETS PO SCH (21:07)
[2020-08-27] MEDS: THIAMINE HCL 100 MG TABLET (FP) PO SCH (21:07)
[2020-08-28] MEDS ORDERED: METHADONE HCL 10 MG TABLET ONE (05:36)
[2020-08-28] MEDS ORDERED: METHADONE HCL 40 MG DISPERSABLE TABLET ONE (05:36)
[2020-08-28] MEDS: hydrOXYzine PAMOATE 25 MG CAPSULE (FP) PO SCH ×5 (06:41→21:03)
[2020-08-28] MEDS: METHADONE 40 MG, METHADONE 30 MG PO SCH (06:41)
[2020-08-28] MEDS: SULFAMETHOXAZOLE/TRIMETHOPRIM 800MG/160MG D.S. TABLET PO SCH ×2 (10:58→21:03)
[2020-08-28] MEDS: PRENATAL VITAMINS W/ FOLIC ACID TABLET (FP) PO SCH (10:58)
[2020-08-28] MEDS: METHOCARBAMOL 500 MG TABLET PO SCH ×4 (10:58→21:03)
[2020-08-28] MEDS: NICOTINE 7 MG/24 HOURS TOPICAL PATCH TD SCH (10:59)
[2020-08-28] MEDS ORDERED: PT OWN MED DRAWER 7, Y5N ONE (10:59)
[2020-08-28] MEDS: BICTEGRAV/EMTRICIT/TENOFOV (BIKTARVY) 50-200-25 MG TABLET PO SCH (11:00)
[2020-08-28] MEDS: MELATONIN 5 MG TABLETS PO SCH (21:03)
[2020-08-28] MEDS: THIAMINE HCL 100 MG TABLET (FP) PO SCH (21:03)
[2020-08-29] MEDS ORDERED: METHADONE HCL 40 MG DISPERSABLE TABLET ONE (03:12)
[2020-08-29] MEDS ORDERED: METHADONE HCL 10 MG TABLET ONE (03:12)
[2020-08-29] MEDS: hydrOXYzine PAMOATE 25 MG CAPSULE (FP) PO SCH ×5 (06:09→21:04)
[2020-08-29] MEDS: METHADONE 40 MG, METHADONE 30 MG PO SCH (06:09)
[2020-08-29] MEDS: NICOTINE 7 MG/24 HOURS TOPICAL PATCH TD SCH (09:27)
[2020-08-29] MEDS: PRENATAL VITAMINS W/ FOLIC ACID TABLET (FP) PO SCH (09:27)
[2020-08-29] MEDS: BICTEGRAV/EMTRICIT/TENOFOV (BIKTARVY) 50-200-25 MG TABLET PO SCH (09:28)
[2020-08-29] MEDS: METHOCARBAMOL 500 MG TABLET PO SCH ×4 (09:28→21:04)
[2020-08-29] MEDS: SULFAMETHOXAZOLE/TRIMETHOPRIM 800MG/160MG D.S. TABLET PO SCH ×2 (09:28→21:04)
[2020-08-29] MEDS: THIAMINE HCL 100 MG TABLET (FP) PO SCH (21:04)
[2020-08-29] MEDS: MELATONIN 5 MG TABLETS PO SCH (21:04)
[2020-08-30] MEDS ORDERED: METHADONE HCL 10 MG TABLET ONE (03:04)
[2020-08-30] MEDS ORDERED: METHADONE HCL 40 MG DISPERSABLE TABLET ONE (03:04)
[2020-08-30] MEDS: METHADONE 40 MG, METHADONE 30 MG PO SCH (06:17)
[2020-08-30] MEDS: hydrOXYzine PAMOATE 25 MG CAPSULE (FP) PO SCH ×5 (06:17→21:02)
[2020-08-30] MEDS: PRENATAL VITAMINS W/ FOLIC ACID TABLET (FP) PO SCH (10:02)
[2020-08-30] MEDS: BICTEGRAV/EMTRICIT/TENOFOV (BIKTARVY) 50-200-25 MG TABLET PO SCH (10:02)
[2020-08-30] MEDS: SULFAMETHOXAZOLE/TRIMETHOPRIM 800MG/160MG D.S. TABLET PO SCH ×2 (10:02→21:02)
[2020-08-30] MEDS: NICOTINE 7 MG/24 HOURS TOPICAL PATCH TD SCH (10:02)
[2020-08-30] MEDS: METHOCARBAMOL 500 MG TABLET PO SCH ×4 (10:02→21:02)
[2020-08-30] MEDS: MELATONIN 5 MG TABLETS PO SCH (21:02)
[2020-08-30] MEDS: THIAMINE HCL 100 MG TABLET (FP) PO SCH (21:02)
[2020-08-31] MEDS ORDERED: METHADONE HCL 40 MG DISPERSABLE TABLET ONE (05:00)
[2020-08-31] MEDS ORDERED: METHADONE HCL 10 MG TABLET ONE (05:01)
[2020-08-31] MEDS: hydrOXYzine PAMOATE 25 MG CAPSULE (FP) PO SCH (06:01)
[2020-08-31] MEDS: METHADONE 40 MG, METHADONE 30 MG PO SCH (06:01)
[2020-08-31 07:49] VITALS: BP 133/78; PULSE 69; TEMP 97.8
== END 2020-08-31 08:50 | disposition home or self-care (01) | DRG 772 ==
LOC: YASAS 19:49 → Y3W 19:52
PROVIDERS: ADMIT Allergy & Immunology; ATTEND Allergy & Immunology
PROC: HZ42ZZZ Group Counseling for Substance Abuse Treatment, Cognitive-Behavioral (ICD-10-PCS; principal; 2020-08-26)
DX: F11.20 Opioid dependence, uncomplicated (principal); F10.20 Alcohol dependence, uncomplicated; Z21 Asymptomatic human immunodeficiency virus [HIV] infection status; Z86.19 Personal history of other infectious and parasitic diseases; Z59.0 Homelessness

== ENCOUNTER 2021-03-09 16:24 | Inpatient (IN) | payer OTHER ==
[2021-03-09] MEDS ORDERED: ACETAMINOPHEN 325 MG TABLET (FP) PO PRN ×2 (20:00)
[2021-03-09] MEDS ORDERED: DICYCLOMINE HCL 10 MG CAPSULE PO PRN (20:00)
[2021-03-09] MEDS ORDERED: guaiFENesin 200 MG/10 ML 10 ML UNIT-DOSE CUPS PO PRN (20:00)
[2021-03-09] MEDS ORDERED: MAG HYDROX/AL HYDROX/SIMETH 30 ML UNIT-DOSE CUP PO PRN (20:00)
[2021-03-09] MEDS ORDERED: NALOXONE (NARCAN) HCL 4 MG/0.1 ML SPRAY NS PRN (20:00)
[2021-03-09] MEDS ORDERED: P-EPHED 60MG/TRIPROLIDI 2.5MG TABLET PO PRN (20:00)
[2021-03-09] MEDS ORDERED: NICOTINE POLACRILEX 2 MG GUM BUC PRN (20:00)
[2021-03-09] MEDS ORDERED: hydrOXYzine PAMOATE 50 MG CAPSULE (FP) PO PRN (20:00)
[2021-03-09] MEDS ORDERED: MENTHOL/PHENOL 1 EACH UD MM PRN (20:00)
[2021-03-09] MEDS ORDERED: ONDANSETRON *ODT* 4 MG TABLET SL PRN (20:00)
[2021-03-09] MEDS ORDERED: MAGNESIUM HYDROX 2400MG/30ML ORAL SUSPENSION 30 ML CUP PO PRN (20:00)
[2021-03-09] MEDS ORDERED: NALOXONE HCL 0.4 MG/ML VIAL IM PRN (20:00)
[2021-03-09] MEDS ORDERED: MAGNESIUM CITRATE 300 ML BOTTLE PO PRN (20:00)
[2021-03-09] MEDS ORDERED: METHOCARBAMOL 500 MG TABLET PO PRN (20:00)
[2021-03-09 22:06] VITALS: BMI 25.8
[2021-03-10] MEDS: MELATONIN 5 MG TABLETS PO SCH ×2 (04:55→22:40)
[2021-03-10] MEDS: THIAMINE HCL 100 MG TABLET (FP) PO SCH ×2 (04:55→22:40)
[2021-03-10] MEDS ORDERED: cloNIDine HCL 0.1 MG TABLET PO PRN (09:48)
[2021-03-10] MEDS ORDERED: diazePAM 5 MG TABLET PO PRN (09:48)
[2021-03-10] MEDS ORDERED: METHADONE HCL 10 MG TABLET (FOR DETOX USE ONLY) PO ONE (09:48)
[2021-03-10] MEDS: diazePAM 5 MG TABLET PO SCH ×3 (10:35→22:40)
[2021-03-10] MEDS: PRENATAL VITAMINS W/ FOLIC ACID TABLET (FP) PO SCH (10:37)
[2021-03-10] MEDS: NICOTINE 21 MG/24 HOURS TOPICAL PATCH TD SCH (10:37)
[2021-03-10] MEDS: BICTEGRAV/EMTRICIT/TENOFOV (BIKTARVY) 50-200-25 MG TABLET PO SCH (10:55)
[2021-03-10 13:44] LABS: ALBUMIN 3.9 g/dl (3.4-5.0); BLOOD UREA NITROGEN 9.3 mg/dL (7-18); CALCIUM 8.5 mg/dL (8.5-10.1)
[2021-03-10 13:47] LABS: CREATININE 0.7 mg/dL (0.55-1.3)
[2021-03-10 13:48] LABS: TOT PROT 7.6 g/dl (6.4-8.2)
[2021-03-10 14:03] LABS: HEMATOCRIT 38.3 % (35.4-49); HEMOGLOBIN 13.3 GM/dL (11.7-16.9); MCH 31.3 pg (25.7-33.7); MCHC 34.8 g/dl (32.0-35.9); MEAN PLT VOLUME 9.7 fl (7.5-11.1); PLATELET COUNT 130 10^3/uL (134-434); RBC 4.26 M/mm3 (4.00-5.60); RDW 14.6 % (11.9-15.9)
[2021-03-10 14:18] LABS: WHITE BLOOD COUNT 3.6 K/mm3 (4.0-10.0)
[2021-03-10 14:42] LABS: ANISOCYTOSIS 0; HELMET CELLS 0; HOWELL-JOLLY BODIES 0; MACROCYTOSIS 0; OVALOCYTE 0; PLATELET ESTIMATE DECREASED; ROULEAU 0; SICKELED CELLS 0; TARGET CELLS 0; TEAR DROP CELLS 0; TOXIC GRANULATION 0
[2021-03-10] MEDS ORDERED: POTASSIUM CHLORIDE ORAL LIQUID 20 MEQ/15 ML PO ONE (14:42)
[2021-03-10] MEDS ORDERED: POTASSIUM CHLORIDE TABS 20 MEQ TABLET.ER (FP) PO ONE (15:30)
[2021-03-10] MEDS ORDERED: POTASSIUM CHLORIDE ORAL LIQUID 20 MEQ/15 ML PO SCH (22:00)
[2021-03-10] MEDS: POTASSIUM CHLORIDE TABS 20 MEQ TABLET.ER (FP) PO SCH (22:40)
[2021-03-11] MEDS: diazePAM 5 MG TABLET PO SCH ×4 (06:07→22:22)
[2021-03-11] MEDS ORDERED: METHADONE HCL 5 MG TABLET (FOR DETOX USE ONLY) ONE (08:54)
[2021-03-11] MEDS ORDERED: METHADONE HCL 10 MG TABLET (FOR DETOX USE ONLY) ONE (08:55)
[2021-03-11] MEDS ORDERED: METHADONE (DETOX) 20 MG, METHADONE (DETOX) 5 MG PO ONE (10:00)
[2021-03-11] MEDS: BICTEGRAV/EMTRICIT/TENOFOV (BIKTARVY) 50-200-25 MG TABLET PO SCH (10:09)
[2021-03-11] MEDS: POTASSIUM CHLORIDE TABS 20 MEQ TABLET.ER (FP) PO SCH ×2 (10:09→22:22)
[2021-03-11] MEDS: NICOTINE 21 MG/24 HOURS TOPICAL PATCH TD SCH (10:10)
[2021-03-11] MEDS: PRENATAL VITAMINS W/ FOLIC ACID TABLET (FP) PO SCH (10:54)
[2021-03-11] MEDS: MELATONIN 5 MG TABLETS PO SCH (22:22)
[2021-03-11] MEDS: THIAMINE HCL 100 MG TABLET (FP) PO SCH (22:23)
[2021-03-12] MEDS: diazePAM 5 MG TABLET PO SCH ×3 (06:09→22:15)
[2021-03-12] MEDS ORDERED: METHADONE HCL 10 MG TABLET (FOR DETOX USE ONLY) PO ONE (10:00)
[2021-03-12] MEDS: BICTEGRAV/EMTRICIT/TENOFOV (BIKTARVY) 50-200-25 MG TABLET PO SCH (10:12)
[2021-03-12] MEDS: NICOTINE 21 MG/24 HOURS TOPICAL PATCH TD SCH (10:12)
[2021-03-12] MEDS: SELENIUM SULFIDE 2.5% LOTION 4 OZ. TP SCH (10:13)
[2021-03-12] MEDS: PRENATAL VITAMINS W/ FOLIC ACID TABLET (FP) PO SCH (11:02)
[2021-03-12] MEDS: MELATONIN 5 MG TABLETS PO SCH (22:16)
[2021-03-12] MEDS: THIAMINE HCL 100 MG TABLET (FP) PO SCH (22:16)
[2021-03-13] MEDS ORDERED: diazePAM 5 MG TABLET PO SCH (06:00)
[2021-03-13] MEDS ORDERED: METHADONE HCL 5 MG TABLET (FOR DETOX USE ONLY) ONE (08:49)
[2021-03-13] MEDS ORDERED: METHADONE HCL 10 MG TABLET (FOR DETOX USE ONLY) ONE (08:49)
[2021-03-13] MEDS ORDERED: METHADONE (DETOX) 10 MG, METHADONE (DETOX) 5 MG PO ONE (10:00)
[2021-03-13] MEDS: NICOTINE 21 MG/24 HOURS TOPICAL PATCH TD SCH (10:55)
[2021-03-13] MEDS: PRENATAL VITAMINS W/ FOLIC ACID TABLET (FP) PO SCH (10:56)
[2021-03-13] MEDS: SELENIUM SULFIDE 2.5% LOTION 4 OZ. TP SCH (10:56)
[2021-03-13] MEDS: BICTEGRAV/EMTRICIT/TENOFOV (BIKTARVY) 50-200-25 MG TABLET PO SCH (15:20)
[2021-03-13 15:35] VITALS: BP 111/64; PULSE 55; TEMP 98
[2021-03-14] MEDS ORDERED: diazePAM 5 MG TABLET PO ONE (06:00)
[2021-03-14] MEDS ORDERED: METHADONE HCL 10 MG TABLET (FOR DETOX USE ONLY) PO ONE (10:00)
[2021-03-15] MEDS ORDERED: METHADONE HCL 5 MG TABLET (FOR DETOX USE ONLY) PO ONE (06:00)
== END 2021-03-13 17:55 | disposition left against medical advice (07) | DRG 770 ==
LOC: YASAS 16:24 → UNDOADMIN 03-10 01:54 → Y6N 03-10 01:54
PROVIDERS: ADMIT Allergy & Immunology; ATTEND Allergy & Immunology
PROC: HZ2ZZZZ Detoxification Services for Substance Abuse Treatment (ICD-10-PCS; principal; 2021-03-10)
DX: F11.23 Opioid dependence with withdrawal (principal); F14.20 Cocaine dependence, uncomplicated; F13.20 Sedative, hypnotic or anxiolytic dependence, uncomplicated; F17.210 Nicotine dependence, cigarettes, uncomplicated; F33.1 Major depressive disorder, recurrent, moderate; F19.282 Other psychoactive substance dependence with psychoactive substance-induced sleep disorder; F19.24 Other psychoactive substance dependence with psychoactive substance-induced mood disorder; Z21 Asymptomatic human immunodeficiency virus [HIV] infection status; E87.6 Hypokalemia; D69.6 Thrombocytopenia, unspecified; D72.819 Decreased white blood cell count, unspecified; B18.2 Chronic viral hepatitis C; Z88.6 Allergy status to analgesic agent; Z56.0 Unemployment, unspecified; Z59.0 Homelessness
CPT/HCPCS: 36415; 80053; 84132; 85027; 86780; C9803; U0003; U0005

== ENCOUNTER 2021-04-27 10:51 | Inpatient (IN) | payer OTHER ==
[2021-04-27 12:57] VITALS: BMI 24.0
[2021-04-27] MEDS ORDERED: clonazePAM 0.5 MG ODT TABLETS SL PRN (14:49)
[2021-04-27] MEDS ORDERED: MAGNESIUM HYDROX 2400MG/30ML ORAL SUSPENSION 30 ML CUP PO PRN (14:49)
[2021-04-27] MEDS ORDERED: MAG HYDROX/AL HYDROX/SIMETH 30 ML UNIT-DOSE CUP PO PRN (14:49)
[2021-04-27] MEDS ORDERED: MAGNESIUM CITRATE 300 ML BOTTLE PO PRN (14:49)
[2021-04-27] MEDS ORDERED: MENTHOL/PHENOL 1 EACH UD MM PRN (14:49)
[2021-04-27] MEDS ORDERED: ACETAMINOPHEN 325 MG TABLET (FP) PO PRN ×2 (14:49)
[2021-04-27] MEDS ORDERED: cloNIDine HCL 0.1 MG TABLET PO PRN (14:49)
[2021-04-27] MEDS ORDERED: NICOTINE POLACRILEX 4 MG GUM BUC PRN (14:49)
[2021-04-27] MEDS ORDERED: methaDONE HCL 10 MG TABLET (FOR DETOX USE ONLY) PO ONE (15:15)
[2021-04-27] MEDS: PRENATAL VITAMINS W/ FOLIC ACID TABLET (FP) PO SCH (16:03)
[2021-04-27] MEDS: hydrOXYzine PAMOATE 25 MG CAPSULE (FP) PO SCH ×2 (17:01→22:26)
[2021-04-27] MEDS: NICOTINE 10 MG CARTRIDGE (INHALER) IH PRN (20:23)
[2021-04-27] MEDS: THIAMINE HCL 100 MG TABLET (FP) PO SCH (22:26)
[2021-04-27] MEDS: MELATONIN 5 MG TABLETS PO SCH (22:26)
[2021-04-28] MEDS: hydrOXYzine PAMOATE 25 MG CAPSULE (FP) PO SCH ×2 (06:10→09:50)
[2021-04-28] MEDS: NICOTINE 10 MG CARTRIDGE (INHALER) IH PRN ×2 (06:10→11:51)
[2021-04-28] MEDS ORDERED: methaDONE HCL 10 MG TABLET (FOR DETOX USE ONLY) ONE (09:43)
[2021-04-28] MEDS ORDERED: hydrOXYzine PAMOATE 25 MG CAPSULE (FP) PO PRN (09:49)
[2021-04-28] MEDS: BICTEGRAV/EMTRICIT/TENOFOV (BIKTARVY) 50-200-25 MG TABLET PO SCH (09:50)
[2021-04-28] MEDS: METHOCARBAMOL 500 MG TABLET PO PRN (09:50)
[2021-04-28] MEDS: PRENATAL VITAMINS W/ FOLIC ACID TABLET (FP) PO SCH (09:51)
[2021-04-28 10:55] LABS: HEMATOCRIT 37.5 % (35.4-49); HEMOGLOBIN 12.6 GM/dL (11.7-16.9); MCH 31.4 pg (25.7-33.7); MCHC 33.7 g/dl (32.0-35.9); MEAN PLT VOLUME 9.8 fl (7.5-11.1); PLATELET COUNT 74 10^3/uL (134-434); RBC 4.03 M/mm3 (4.00-5.60)
[2021-04-28 10:59] LABS: CALCIUM 8.5 mg/dL (8.5-10.1)
[2021-04-28 11:00] LABS: ALBUMIN 3.5 g/dl (3.4-5.0); BLOOD UREA NITROGEN 10.1 mg/dL (7-18)
[2021-04-28 11:03] LABS: CREATININE 0.7 mg/dL (0.55-1.3)
[2021-04-28 11:05] LABS: BILIRUBIN,TOTAL 0.3 mg/dL (0.2-1); TOT PROT 7.1 g/dl (6.4-8.2)
[2021-04-28 11:12] LABS: WHITE BLOOD COUNT 1.8 K/mm3 (4.0-10.0)
[2021-04-28] MEDS: THIAMINE HCL 100 MG TABLET (FP) PO SCH (22:23)
[2021-04-28] MEDS: MELATONIN 5 MG TABLETS PO SCH (22:23)
[2021-04-29] MEDS: BICTEGRAV/EMTRICIT/TENOFOV (BIKTARVY) 50-200-25 MG TABLET PO SCH (09:00)
[2021-04-29] MEDS: ONDANSETRON *ODT* 4 MG TABLET SL PRN (09:00)
[2021-04-29] MEDS ORDERED: methaDONE HCL 10 MG TABLET (FOR DETOX USE ONLY) PO ONE (10:00)
[2021-04-29] MEDS: PRENATAL VITAMINS W/ FOLIC ACID TABLET (FP) PO SCH (10:55)
[2021-04-29] MEDS: METHOCARBAMOL 500 MG TABLET PO PRN (10:55)
[2021-04-29 12:10] LABS: HEMATOCRIT 39.5 % (35.4-49); HEMOGLOBIN 13.6 GM/dL (11.7-16.9); MCH 31.9 pg (25.7-33.7); MCHC 34.5 g/dl (32.0-35.9); MEAN CELL VOLUME 92.4 fl (80-96); MEAN PLT VOLUME 10.4 fl (7.5-11.1); PLATELET COUNT 76 10^3/uL (134-434); RBC 4.28 M/mm3 (4.00-5.60)
[2021-04-29] MEDS: NICOTINE 10 MG CARTRIDGE (INHALER) IH PRN (12:42)
[2021-04-29] MEDS: MELATONIN 5 MG TABLETS PO SCH (23:32)
[2021-04-29] MEDS: THIAMINE HCL 100 MG TABLET (FP) PO SCH (23:33)
[2021-04-30] MEDS ORDERED: methaDONE HCL 10 MG TABLET (FOR DETOX USE ONLY) ONE (09:47)
[2021-04-30] MEDS: BICTEGRAV/EMTRICIT/TENOFOV (BIKTARVY) 50-200-25 MG TABLET PO SCH (10:04)
[2021-04-30] MEDS: PRENATAL VITAMINS W/ FOLIC ACID TABLET (FP) PO SCH (10:04)
[2021-04-30] MEDS: METHOCARBAMOL 500 MG TABLET PO PRN (10:05)
[2021-04-30] MEDS: ONDANSETRON *ODT* 4 MG TABLET SL PRN (10:58)
[2021-04-30] MEDS: THIAMINE HCL 100 MG TABLET (FP) PO SCH (22:52)
[2021-04-30] MEDS: MELATONIN 5 MG TABLETS PO SCH (22:52)
[2021-05-01] MEDS: ONDANSETRON *ODT* 4 MG TABLET SL PRN ×2 (06:29→17:46)
[2021-05-01] MEDS: BICTEGRAV/EMTRICIT/TENOFOV (BIKTARVY) 50-200-25 MG TABLET PO SCH (07:06)
[2021-05-01] MEDS ORDERED: methaDONE HCL 10 MG TABLET (FOR DETOX USE ONLY) PO ONE (10:00)
[2021-05-01] MEDS: PRENATAL VITAMINS W/ FOLIC ACID TABLET (FP) PO SCH (10:13)
[2021-05-01] MEDS: THIAMINE HCL 100 MG TABLET (FP) PO SCH (22:31)
[2021-05-01] MEDS: MELATONIN 5 MG TABLETS PO SCH (22:31)
[2021-05-02] MEDS: ONDANSETRON *ODT* 4 MG TABLET SL PRN (05:53)
[2021-05-02 09:58] VITALS: BP 106/71; PULSE 66; TEMP 97.1
[2021-05-02] MEDS: BICTEGRAV/EMTRICIT/TENOFOV (BIKTARVY) 50-200-25 MG TABLET PO SCH (10:20)
[2021-05-02] MEDS: PRENATAL VITAMINS W/ FOLIC ACID TABLET (FP) PO SCH (10:20)
== END 2021-05-02 13:19 | disposition other institution (70) | DRG 773 ==
LOC: YASAS 10:51 → Y3N 13:38 → UNDOADMIN 13:38
PROVIDERS: ADMIT Allergy & Immunology; ATTEND Allergy & Immunology
PROC: HZ2ZZZZ Detoxification Services for Substance Abuse Treatment (ICD-10-PCS; principal; 2021-04-27)
DX: F11.23 Opioid dependence with withdrawal (principal); F14.20 Cocaine dependence, uncomplicated; F12.20 Cannabis dependence, uncomplicated; F17.210 Nicotine dependence, cigarettes, uncomplicated; Z21 Asymptomatic human immunodeficiency virus [HIV] infection status; D69.6 Thrombocytopenia, unspecified; D72.810 Lymphocytopenia; B18.2 Chronic viral hepatitis C; Z91.013 Allergy to seafood; Z59.0 Homelessness
CPT/HCPCS: 36415; 80053; 85027; 86780; C9803; Q0162; U0003; U0005

== ENCOUNTER 2021-05-02 12:29 | Inpatient (IN) | payer OTHER ==
[2021-05-02] MEDS ORDERED: NICOTINE 10 MG CARTRIDGE (INHALER) IH PRN (14:13)
[2021-05-02] MEDS ORDERED: MAGNESIUM CITRATE 300 ML BOTTLE PO PRN (14:13)
[2021-05-02] MEDS ORDERED: LOPERAMIDE HCL 2 MG CAPSULE PO PRN (14:13)
[2021-05-02] MEDS ORDERED: ACETAMINOPHEN 325 MG TABLET (FP) PO PRN (14:13)
[2021-05-02] MEDS ORDERED: NICOTINE POLACRILEX 4 MG GUM BC PRN (14:13)
[2021-05-02] MEDS ORDERED: P-EPHED 60MG/TRIPROLIDI 2.5MG TABLET PO PRN (14:13)
[2021-05-02] MEDS ORDERED: guaiFENesin 200 MG/10 ML 10 ML UNIT-DOSE CUPS PO PRN (14:13)
[2021-05-02] MEDS ORDERED: MAGNESIUM HYDROX 2400MG/30ML ORAL SUSPENSION 30 ML CUP PO PRN (14:13)
[2021-05-02] MEDS ORDERED: MAG HYDROX/AL HYDROX/SIMETH 30 ML UNIT-DOSE CUP PO PRN (14:13)
[2021-05-02] MEDS: hydrOXYzine PAMOATE 25 MG CAPSULE (FP) PO SCH ×2 (17:03→21:21)
[2021-05-02] MEDS: THIAMINE HCL 100 MG TABLET (FP) PO SCH (21:20)
[2021-05-02] MEDS: MELATONIN 5 MG TABLETS PO SCH (21:20)
[2021-05-03] MEDS: hydrOXYzine PAMOATE 25 MG CAPSULE (FP) PO SCH (06:29)
[2021-05-03 06:37] VITALS: BP 135/83; PULSE 63; TEMP 96.9
[2021-05-03] MEDS ORDERED: hydrOXYzine PAMOATE 25 MG CAPSULE (FP) PO PRN (08:29)
[2021-05-03] MEDS: BICTEGRAV/EMTRICIT/TENOFOV (BIKTARVY) 50-200-25 MG TABLET PO SCH (11:00)
[2021-05-03] MEDS: PRENATAL VITAMINS W/ FOLIC ACID TABLET (FP) PO SCH (11:00)
[2021-05-03] MEDS ORDERED: ONDANSETRON *ODT* 4 MG TABLET SL PRN (11:32)
[2021-05-03] MEDS: MELATONIN 5 MG TABLETS PO SCH (21:47)
[2021-05-03] MEDS: THIAMINE HCL 100 MG TABLET (FP) PO SCH (21:47)
[2021-05-04] MEDS ORDERED: PT OWN MED DRAWER 7, Y5N ONE (08:52)
[2021-05-04] MEDS: PRENATAL VITAMINS W/ FOLIC ACID TABLET (FP) PO SCH (09:46)
[2021-05-04] MEDS: BICTEGRAV/EMTRICIT/TENOFOV (BIKTARVY) 50-200-25 MG TABLET PO SCH (09:46)
== END 2021-05-04 11:10 | disposition home or self-care (01) | DRG 772 ==
LOC: YASAS 12:29 → Y3E 12:30
PROVIDERS: ADMIT Allergy & Immunology; ATTEND Allergy & Immunology
PROC: HZ42ZZZ Group Counseling for Substance Abuse Treatment, Cognitive-Behavioral (ICD-10-PCS; principal; 2021-05-02)
DX: F11.20 Opioid dependence, uncomplicated (principal); F14.20 Cocaine dependence, uncomplicated; F12.20 Cannabis dependence, uncomplicated; F17.210 Nicotine dependence, cigarettes, uncomplicated; Z21 Asymptomatic human immunodeficiency virus [HIV] infection status; D69.6 Thrombocytopenia, unspecified; D72.819 Decreased white blood cell count, unspecified; B18.2 Chronic viral hepatitis C; Z59.0 Homelessness; Z88.5 Allergy status to narcotic agent; Z91.013 Allergy to seafood
CPT/HCPCS: Q0162

== ENCOUNTER 2021-06-24 11:14 | Inpatient (IN) | payer OTHER ==
[2021-06-24] MEDS ORDERED: MAGNESIUM CITRATE 300 ML BOTTLE PO PRN (12:54)
[2021-06-24] MEDS ORDERED: NICOTINE 21 MG/24 HOURS TOPICAL PATCH TD PRN (12:54)
[2021-06-24] MEDS ORDERED: cloNIDine HCL 0.1 MG TABLET PO PRN (12:54)
[2021-06-24] MEDS ORDERED: ONDANSETRON *ODT* 4 MG TABLET SL PRN (12:54)
[2021-06-24] MEDS ORDERED: BISMUTH SUBSALICYLATE 524 MG/30 ML PO PRN (12:54)
[2021-06-24] MEDS ORDERED: ACETAMINOPHEN 325 MG TABLET (FP) PO PRN ×2 (12:54)
[2021-06-24] MEDS ORDERED: MAGNESIUM HYDROX 2400MG/30ML ORAL SUSPENSION 30 ML CUP PO PRN (12:54)
[2021-06-24] MEDS ORDERED: methaDONE HCL 10 MG TABLET (FOR DETOX USE ONLY) PO ONE (12:54)
[2021-06-24] MEDS ORDERED: MENTHOL/PHENOL 1 EACH UD MM PRN (12:54)
[2021-06-24] MEDS ORDERED: MAG HYDROX/AL HYDROX/SIMETH 30 ML UNIT-DOSE CUP PO PRN (12:54)
[2021-06-24] MEDS ORDERED: NICOTINE 10 MG CARTRIDGE (INHALER) IH PRN (12:54)
[2021-06-24] MEDS ORDERED: BICTEGRAV/EMTRICIT/TENOFOV (BIKTARVY) 50-200-25 MG TABLET PO SCH (13:00)
[2021-06-24 13:29] VITALS: BMI 22.4
[2021-06-24] MEDS ORDERED: hydrOXYzine PAMOATE 25 MG CAPSULE (FP) PO SCH (14:00)
[2021-06-24] MEDS ORDERED: hydrOXYzine PAMOATE 25 MG CAPSULE (FP) PO PRN (14:18)
[2021-06-24] MEDS: diazePAM 5 MG TABLET PO PRN ×2 (14:20→22:15)
[2021-06-24] MEDS: THIAMINE HCL 100 MG TABLET (FP) PO SCH (22:14)
[2021-06-24] MEDS: MELATONIN 5 MG TABLETS PO SCH (22:15)
[2021-06-25] MEDS ORDERED: methaDONE HCL 10 MG TABLET (FOR DETOX USE ONLY) ONE (08:58)
[2021-06-25] MEDS: diazePAM 5 MG TABLET PO PRN ×4 (10:13→22:13)
[2021-06-25] MEDS: PRENATAL VITAMINS W/ FOLIC ACID TABLET (FP) PO SCH (10:18)
[2021-06-25 10:35] LABS: HEMATOCRIT 40.5 % (35.4-49); HEMOGLOBIN 13.9 GM/dL (11.7-16.9); MCHC 34.2 g/dl (32.0-35.9); MEAN CELL VOLUME 90.7 fl (80-96); PLATELET COUNT 128 10^3/uL (134-434); RBC 4.47 M/mm3 (4.00-5.60); RDW 14.6 % (11.9-15.9); WHITE BLOOD COUNT 2.3 K/mm3 (4.0-10.0)
[2021-06-25 10:36] LABS: ALBUMIN 3.3 g/dl (3.4-5.0); BLOOD UREA NITROGEN 9.5 mg/dL (7-18); CALCIUM 8.6 mg/dL (8.5-10.1)
[2021-06-25 10:39] LABS: CREATININE 0.6 mg/dL (0.55-1.3)
[2021-06-25 10:41] LABS: BILIRUBIN,TOTAL 0.5 mg/dL (0.2-1); TOT PROT 7.5 g/dl (6.4-8.2)
[2021-06-25] MEDS: METHOCARBAMOL 500 MG TABLET PO PRN (13:53)
[2021-06-25] MEDS: MELATONIN 5 MG TABLETS PO SCH (22:13)
[2021-06-25] MEDS: THIAMINE HCL 100 MG TABLET (FP) PO SCH (22:13)
[2021-06-26] MEDS: METHOCARBAMOL 500 MG TABLET PO PRN (09:46)
[2021-06-26] MEDS: diazePAM 5 MG TABLET PO PRN ×2 (09:46→13:45)
[2021-06-26] MEDS: PRENATAL VITAMINS W/ FOLIC ACID TABLET (FP) PO SCH (09:46)
[2021-06-26] MEDS ORDERED: methaDONE HCL 10 MG TABLET (FOR DETOX USE ONLY) PO ONE (10:00)
[2021-06-26] MEDS: THIAMINE HCL 100 MG TABLET (FP) PO SCH (21:56)
[2021-06-26] MEDS: MELATONIN 5 MG TABLETS PO SCH (21:56)
[2021-06-27] MEDS ORDERED: methaDONE HCL 10 MG TABLET (FOR DETOX USE ONLY) ONE (09:45)
[2021-06-27] MEDS: PRENATAL VITAMINS W/ FOLIC ACID TABLET (FP) PO SCH (10:15)
[2021-06-27] MEDS: METHOCARBAMOL 500 MG TABLET PO PRN (10:15)
[2021-06-27] MEDS: diazePAM 5 MG TABLET PO PRN (10:15)
[2021-06-27] MEDS: THIAMINE HCL 100 MG TABLET (FP) PO SCH (22:19)
[2021-06-27] MEDS: MELATONIN 5 MG TABLETS PO SCH (22:20)
[2021-06-28] MEDS ORDERED: methaDONE HCL 10 MG TABLET (FOR DETOX USE ONLY) PO ONE (10:00)
[2021-06-28] MEDS: PRENATAL VITAMINS W/ FOLIC ACID TABLET (FP) PO SCH (10:04)
[2021-06-28 21:05] VITALS: PULSE 72
[2021-06-28] MEDS: MELATONIN 5 MG TABLETS PO SCH (23:03)
[2021-06-28] MEDS: THIAMINE HCL 100 MG TABLET (FP) PO SCH (23:03)
[2021-06-29 06:51] VITALS: BP 122/76; TEMP 97.2
== END 2021-06-29 09:22 | disposition home or self-care (01) | DRG 773 ==
LOC: YASAS 11:14 → Y6N 14:52
PROVIDERS: ADMIT Allergy & Immunology; ATTEND Allergy & Immunology
PROC: HZ2ZZZZ Detoxification Services for Substance Abuse Treatment (ICD-10-PCS; principal; 2021-06-24)
DX: F11.23 Opioid dependence with withdrawal (principal); F14.20 Cocaine dependence, uncomplicated; F12.20 Cannabis dependence, uncomplicated; F17.210 Nicotine dependence, cigarettes, uncomplicated; Z21 Asymptomatic human immunodeficiency virus [HIV] infection status; D72.810 Lymphocytopenia; B18.2 Chronic viral hepatitis C; Z88.6 Allergy status to analgesic agent; Z91.013 Allergy to seafood; Z59.00 Homelessness unspecified
CPT/HCPCS: 36415; 80053; 85027; 86780; C9803; Q0162; U0003; U0005